=== PATIENT | male | born 1995 | race Two or more races ===

== ENCOUNTER 2024-07-26 08:30 | Outpatient (RCR) | payer MEDICAID, SELFPAY ==
--- NOTE | 2024-07-02 09:49 | PT.OIERPT ---
PT OP Initial Eval Patient Information Outpatient Physical Therapy Treatment Date: 07/02/24 Visit Reasons: Low Back pain Medical Diagnosis: Back Pain Treatment Dx #1: Back Pain Smoking Status Smoking Status: Never smoker Initial Assessment Subjective: Pt is a 28 y/o male reports of back and right LE pain a few months ago after lifting a heavy tire. Pt's xray negative No MRI has been done. Pt has limitation with lifting, sitting, standing, chores, self care, cooking, cleaning, and performing recreational activities. Objective: L/S AROM: all motions are WFL except end range pain into flexion Hip PROM: all motions are WFL except IR Hip MMTs: grossly 3+/5 Special Test (+) SLR Assessment: Pt demonstrate back pain consistent with possible disc involvement leading to difficulty with ADLs. 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
--- NOTE | 2024-07-09 11:12 | PT.ODAYNRPT ---
PT Outpatient Daily Note OP Daily Note Outpatient Physical Therapy Treatment Date: 07/09/24 Visit Reasons: Low Back pain Subjective: Pt's back feels about the same. No change in overall symptoms. Objective: Please see flow chart for list of ther ex performed Assessment: tolerate exercises with minimal pain; no change in overall symptoms post PT session Plan: Continue with PT Length of Time (minutes) of Treatment: 30 Minutes Procedure Charges Therapeutic Exercise 30 minutes: Yes
--- NOTE | 2024-07-14 09:04 | PT.ODAYNRPT ---
PT Outpatient Daily Note OP Daily Note Outpatient Physical Therapy Treatment Date: 07/14/24 Visit Reasons: Low Back pain Subjective: Pt c/o back pain. Objective: Please see flow sheet for ther ex list. Assessment: Pt instructed on repeated lumbar extension exercise, pt able to replicate with good technique encouraged to perform for HEP. Plan: Continue with poC. Assess response to HEP. Length of Time (minutes) of Treatment: 30 Minutes Procedure Charges Therapeutic Exercise 30 minutes: Yes
--- NOTE | 2024-07-16 11:02 | PT.ODAYNRPT ---
PT Outpatient Daily Note OP Daily Note Outpatient Physical Therapy Treatment Date: 07/16/24 Visit Reasons: Low Back pain Subjective: Pt's back feels better after last session, however, did some lifting at home and irritated the back. Pt feels that physical therapy is helping. Objective: Please see flow chart for list of ther ex performed Assessment: tolerate exercises with minimal pain Plan: Continue with PT Length of Time (minutes) of Treatment: 30 Minutes Procedure Charges Therapeutic Exercise 30 minutes: Yes
--- NOTE | 2024-07-26 13:11 | PT.ODAYNRPT ---
PT Outpatient Daily Note OP Daily Note Outpatient Physical Therapy Treatment Date: 07/26/24 Visit Reasons: Low Back pain Subjective: Pt's back is about the same. Pt continues to have some limitation with certain ADLs. Objective: Please see flow chart for list of ther ex performed Assessment: tolerate exercises with minimal pain Plan: Continue with PT Length of Time (minutes) of Treatment: 30 Minutes Procedure Charges Therapeutic Exercise 30 minutes: Yes
== END 2024-07-28 23:59 | disposition home or self-care (01) ==
LOC: CPTX 08:30
PROVIDERS: PCP Family Medicine; Referring Provider Family Medicine; Visit Provider Family Medicine
DX: M54.50 Low back pain, unspecified (principal); M79.604 Pain in right leg
CPT/HCPCS: 97110; 97162

== ENCOUNTER 2024-07-30 08:24 | Outpatient (RCR) | payer MEDICAID, SELFPAY ==
--- NOTE | 2024-07-30 09:01 | PTNOTE_ITS ---
PT OP Progress/Discharge Note Date of Service: 07/30/24 Progress Note/DC Note Progress Note/Discharge Note: DC Note Patient Information Visit Reasons: low back pain Medical Diagnosis: Back Pain Treatment Dx #1: Back Pain Service Continue Service or Discharge: Discharge Discharge Date: 07/30/24 Status Subjective: Pt's mentioned that back is the same and continues to have numbness and pain down the legs. Pt has difficulty with standing, chores, self care, cooking, and recreational activities. Objective: L/S AROM: all motions are WNL Hip PROM: all motions are WNL Hip MMTs: grossly 3+/5 Assessment: Pt continues to have back and leg pain leading to difficulty with ADLs. Pt will not benefit from physical therapy due to minimal progress towards goals. Pt was instructed on HEP last session and educated to continue exercises to maintain overall mobility. Pt performed all exercises safely; thank you for your refer rals. Plan: D/C home with HEP and follow up with MD OBRIEN Procedure Charges Therapeutic Exercise 30 minutes: Yes
== END 2024-08-28 23:59 | disposition home or self-care (01) ==
LOC: CPTX 08:24
PROVIDERS: PCP Family Medicine; Referring Provider Family Medicine; Visit Provider Family Medicine
DX: M54.50 Low back pain, unspecified (principal); M79.604 Pain in right leg; R20.0 Anesthesia of skin
CPT/HCPCS: 97110